=== PATIENT | male | born 1965 | race Caucasian/White ===

== ENCOUNTER → 2020-08-02 09:39 | Outpatient (CLI) | payer OTHER, SELFPAY ==
[2020-08-02 11:04] LABS: Coronavirus 19 IgG Antibody Negative (Negative); Coronavirus 19 IgM Antibody Negative (Negative)
== END ==
PROVIDERS: Visit Provider Internal Medicine Gastroenterology
DX: Z01.812 Encounter for preprocedural laboratory examination (principal); Z20.822 Contact with and (suspected) exposure to COVID-19; Z12.11 Encounter for screening for malignant neoplasm of colon
CPT/HCPCS: 36415; 86328

== ENCOUNTER 2020-08-04 09:32 | Day surgery (SDC) | payer OTHER, SELFPAY ==
[2020-08-04 10:00] VITALS: BP 133/86; PULSE 86; RESP 18; TEMP 36.4; O2SAT 99
[2020-08-04 10:09] VITALS: BMI 26.4
[2020-08-04 10:19] LABS: POC Glucose,Bedside 148 (70-110)
[2020-08-04 11:47] VITALS: O2SAT 98
--- NOTE | 2020-08-04 11:50 | P.PN_ITS ---
[facility] Anesthesia Checklist - Patient Identification Patient Identification: Arm Band - Structural Data Admitted From: Home Planned Operative Procedure/s: colon Consent for Planned Operative Procedure(s) Verified: Yes Verified Documents: Surgical Consent - Anesthesia Plan Anesthesia Risk discussed: Yes Anesthesia Plan: Verified ASA Class: III Anesthesia Type: General [facility] History Medical History: Denies:: Cancer, Diabetes Mellitus Type 1, Diabetes Mellitus Type 2, Internal Pacemaker, MRSA, Seizures *Have you ever received a pneumonia vaccine?: No *Have you received a flu vaccine this season?: Yes Comment:: none Anesthesia experience/problems:: none Other Surgeries: No: Pacemaker Amputation: No Fractures: No - *Social History Last grade of school completed: GED Smoking Status: Former smoker # Packs/Day (cigarettes): 1 #Yrs smoked (if former smoker): 28 Alcohol Intake: current Alcohol Intake Frequency:: holidays/special occasions only Substance Use Type: marijuana Last Used Substance: unknown *Occupational Status:: employed Housing: house Household Members: spouse *Travel in the last 8 weeks: None Family Hx:: Cancer
--- NOTE | 2020-08-04 12:17 | HMH.PROC ---
[facility] Procedure Note Procedure Note:: Colonoscopy Procedure Report: Colonoscopy with cold snare polypectomy Endoscopist: Jhon Hawkins II, MD Referring physician: Franco Sanchez MD Date of Procedure: August 04, 2020 Equipment: Olympus 180 variable stiffness pediatric colonoscope Sedation: MAC sedation Indication: Mr. Hung is a 54-year-old gentleman who is here for initial screening colonoscopy. The patient does have some mild chronic constipation. He reports no rectal bleeding, abdominal pain, change in bowel habits or family history of colon cancer. He has lost approximately 80 pounds over the last 4 years (unintentionally). Procedure: Prior to the procedure, a history and physical exam was performed, and patient's medications and allergies were reviewed. The risks, benefits and alternatives of the sedation and procedure were discussed with the patient. All questions were answered and informed consent was obtained. The patient was brought to the procedure room. Patient identification and proposed procedure were verified by the physician and the nurse. The patient was placed in a left lateral decubitus position and the scope was passed under direct vision. Throughout the procedure, the patient's blood pressure, pulse, and oxygen saturations were monitored continuously. The colonoscopy was accomplished without difficulty. The patient tolerated the procedure well. Findings: On digital rectal examination there was normal rectal tone. There were no external hemorrhoids. The prostate was mildly firm, 2+, symmetric without nodules. The colonoscope was introduced through the anal canal to the rectum and advanced to the cecum. The ileocecal valve and appendiceal orifice were identified. The scope was advanced a short distance into the ileum which appeared grossly normal. The scope was then withdrawn into the colon. The cecum, ascending and transverse colon and mucosa were grossly normal. There were 2 diminutive polyps (descending x1 (4 mm) and sigmoid x1 (4 mm)) which were both removed via cold snare polypectomy. There were scattered diverticuli throughout the descending and sigmoid colon (LEFT colon). The rectum itself was normal. Upon retroflexion within the rectum there were grade 2 internal hemorrhoids. The preparation was good throughout with [place] Preparation Score of 8 out of 9. The cecal time was 12. Impression: 1. Diminutive colonic polyps x2 2. Left-sided diverticulosis 3. Grade 2 internal hemorrhoids Plan: I will follow up the polyp pathology and recommend repeat colonoscopy again in 7-10 years based upon the polyp histology. I would encourage a fiber bowel regimen on a long-term daily maintenance basis.
[2020-08-04 12:20] VITALS: BP 95/66; PULSE 83; RESP 12; TEMP 36.2; O2SAT 95
[2020-08-04 12:30] VITALS: BP 103/74; PULSE 90; RESP 16; O2SAT 96
[2020-08-04 12:40] VITALS: BP 106/72; PULSE 94; RESP 16; O2SAT 97
[2020-08-04 12:50] VITALS: BP 138/79; PULSE 81; RESP 16; TEMP 36.2; O2SAT 98
== END 2020-08-04 12:52 | disposition home or self-care (01) ==
LOC: OUTP 09:36
PROVIDERS: PCP Family Medicine; Visit Provider Internal Medicine Gastroenterology
PROC: 0DJD8ZZ Inspection of Lower Intestinal Tract, Via Natural or Artificial Opening Endoscopic (ICD-10-PCS; CPT 45378; principal; 2020-08-04 11:00)
DX: Z12.11 Encounter for screening for malignant neoplasm of colon (principal); K63.5 Polyp of colon; K57.30 Diverticulosis of large intestine without perforation or abscess without bleeding; K64.1 Second degree hemorrhoids; R63.4 Abnormal weight loss; Z68.26 Body mass index [BMI] 26.0-26.9, adult; E78.5 Hyperlipidemia, unspecified; I10 Essential (primary) hypertension; E11.9 Type 2 diabetes mellitus without complications; F12.90 Cannabis use, unspecified, uncomplicated; Z87.891 Personal history of nicotine dependence; Z79.82 Long term (current) use of aspirin
CPT/HCPCS: 45385; 82962

== ENCOUNTER 2023-09-14 05:34 | Inpatient (IN) | payer MEDICARE, SELFPAY ==
[2023-09-14] VITALS (28 sets, daily range): BP systolic 101–145; BP diastolic 62–94; PULSE 58–150; RESP 10–20; TEMP 36.6–37; O2SAT 97–100; BMI 23.7; BMI 23.8
--- NOTE | 2023-09-14 | CA_ITS ---
APPROVED REPORT EXAM: Comprehensive 2D, Doppler, and color-flow Echocardiogram Marker Machine: Britany Sampson CRT Ht: 6 ft 1 in Wt: 180lbs BSA: 2.06 BP: 101/70 mmHg Indications: Shortness of Breath, Atrial Fibrillation (new onset), Fatigue 2D Dimensions IVSd 0.73 cm LVEF (Visual) 65.80 % PWd 0.90 cm LA Volume 26.20 mL LVDd 4.34 cm LA Volume Index 12.40 mL/m2 (M/F) 16-34 LVDs 2.78 cm Left Atrium 2.87 cm M-Mode Dimensions RVDd 2.64 cm (0.9-2.6) LA Diam 3.96 cm (1.9-4.0) LVDd 4.05 cm (3.5-5.7) LVDs 2.30 cm (3.5-5.7) IVSd 1.11 cm (0.6-1.1) PWd 1.32 cm (0.6-1.1) EF (Teich) 74.90% EPSs 0.51 cm FS 43.20% EDV (Teich) 72.10 mL TAPSE 1.49 (<1.7) ESV (Teich) 18.10 mL LV Diastology E Decel Time 212 (160-240 msec) E/A Ratio 1.97 MED A' 7.70 cm/s Aortic Valve HEIDI Index 0.91 cm2/m2 AoV Peak Frank. 130.0 (50-130 cm/s) AO Peak GR. 6.80 mmHg AO Mean GR. 3.40 (<5 mmHg) AO VTI 21.5 (18-25 cm) HEIDI (VTI) 1.91 (2.5-4.5 cm2) Mitral Valve MV A Velocity 31.0 (40-130 cm/s) E/A Ratio 1.97 Left Ventricle The left ventricle is normal size. The left ventricular systolic function is normal. The left ventricular ejection fraction is within the normal range. There is increased LV wall thickness. There is normal LV segmental wall motion. The left ventricular diastolic function is normal. LVEF is 55%. Right Ventricle The right ventricle is normal size. The right ventricular systolic function is normal. Atria The left atrium size is normal. The right atrium size is normal. There is no Doppler evidence of interatrial shunt. Aortic Valve The aortic valve is mildly thickened. There is no aortic valvular stenosis. No aortic regurgitation is present. Mitral Valve The mitral valve is normal in structure. No evidence of mitral valve stenosis. There is no mitral valve regurgitation noted. Tricuspid Valve The tricuspid valve leaflets are thin and pliable. Trace tricuspid regurgitation. There is insufficient TR jet to estimate RVSP. Pulmonic Valve The pulmonic valve is not well visualized. Great Vessels The aortic root is normal in size. IVC is normal in size and collapses >50% with inspiration. Pericardium There is no pericardial effusion. Other Information Study Quality: Technically Difficult Conclusion Technically difficult study due to poor accoustic windows. Normal biventricular systolic function. No significant valvular stenosis or regurgitation in the visualized valves. Electronically signed by : Jelena Loomis MD 09/16/2023 17:20:21
--- NOTE | 2023-09-14 05:46 | ECG_ITS ---
APPROVED REPORT Exam: Resting ECG HR:160 bpm ECG Measurements Heart Rate 160 AXES QRSd 89 QRS 70 QT 273 T 66 QTc 362 Conclusion A-fib with RVR. Mild ST depression in anterolateral leads, likely rate related. No reciprocal change Electronically signed by : IRIS BARNEY, 09/14/2023 11:24:53
--- NOTE | 2023-09-14 05:51 | XR_ITS ---
PROCEDURE INFORMATION: Exam: XR Chest Exam date and time: 09/14/2023 5:59 AM Age: 58 years old Clinical indication: Shortness of breath; Additional info: Palpitations, SOA TECHNIQUE: Imaging protocol: Radiologic exam of the chest. Views: 1 view. COMPARISON: No relevant prior studies available. FINDINGS: Lungs: Unremarkable. No consolidation. Pleural spaces: Unremarkable. No pleural effusion. No pneumothorax. Heart/Mediastinum: Unremarkable. No cardiomegaly. Bones/joints: Unremarkable. IMPRESSION: No acute findings.
--- NOTE | 2023-09-14 05:52 | ECG_ITS ---
APPROVED REPORT Exam: Resting ECG HR:150 bpm ECG Measurements Heart Rate 150 AXES QRSd 88 QRS 69 QT 278 T 65 QTc 363 Conclusion ATRIAL FIBRILLATION WITH RAPID VENTRICULAR RESPONSE Nonspecific ST/T wave changes Electronically signed by : CHARLIE RAMOS, 09/15/2023 05:42:27
[2023-09-14] MEDS: ASPIRIN 81MG CHEWABLE TABLET 324 MG PO (05:56)
--- NOTE | 2023-09-14 05:56 | PC.NURSE ---
contacted [facility] pharmacy for heparin bolus. spoke with carmina.
[2023-09-14] MEDS: HEPARIN DRIP CONSULT 1 EACH NOTAPPLIC (05:57)
[2023-09-14 05:59] LABS: Basophils # 0.2 K/mm3 (0-0.2); Basophils % 1.7 % (0.1-2.0); Eosinophils # 0.1 K/mm3 (0.0-0.4); Eosinophils % 1.3 % (0.1-12.0); Lymphocytes # 1.6 K/mm3 (0.7-4.5); Lymphocytes % 18.8 % (10-50); Mean Corpuscular HGB Conc 33.4 g/dL (31.8-35.4); Mean Corpuscular Hemoglobin 32.7 pg (27.0-31.2); Mean Corpuscular Volume 98.1 fl (80-94); Mean Platelet Volume 10.3 fl (7.4-10.4); Monocytes # 0.5 K/mm3 (0.1-1.0); Monocytes % 6.2 % (1.7-9.3); Neutrophils # 6.2 K/mm3 (1.8-7.8); Platelet Count 190 K/mm3 (142-424); Red Blood Count 6.13 M/mm3 (4.60-6.20); Red Cell Distribution Width 13.8 % (11.5-17.5); White Blood Count 8.6 K/mm3 (4.8-10.8)
--- NOTE | 2023-09-14 06:04 | ED_ITS ---
Discharge Plan Disposition Patient Disposition: Admitted Condition: Good Chief Complaint: Arrhythmia/Palpitations Prescriptions Prescriptions: No Action No Known Home Medications Referrals Follow up/Referrals: Carter Mcfarland MD [Primary Care Provider] - See instructions Clinical Impressions Clinical Impression: Atrial fibrillation with RVR, Polycythemia, Unintentional weight loss Discharge ED Provider: Marisel Luna General Adult HPI General Chief complaint: Arrhythmia/Palpitations Stated complaint: fatigue,vomiting,abd pain,high hr,laobred breathi Time Seen by Provider: 09/14/23 05:38 Mode of Arrival: Ambulatory Source of Information: Patient Limitations: No Limitations Description of Symptoms (Recalled from ER Triage Doc. by RN): Pt presents with SOA x several weeks that has worsened with heart palpitations. Denies chest pain, just pressure from heart racing. States he had an episode of vomiting earlier this morning which was clear. Describes a knot like feeling in abdomen after eating. History of Present Illness HPI narrative: This patient is a 58-year-old male with a history of diabetes for which he is supposed to take metformin but does not, a history of hyperlipidemia for which she does not take medication, prior history of smoking, and history of chronic digestion issues with unintentional weight loss presenting with concern for palpitations, shortness of air, nausea, and an episode of emesis that happened this morning. Patient states that for several weeks now, he feels like he cannot get a good breath in. He states that he feels like his heart is racing. He notes that it is intermittent and he can sometimes get it calms down if he lies down. He states that this morning, he had an episode of emesis with clear vomit and ice when he started feeling much worse. He states that he was afraid he was going to without IV felt. He also notes that at night if he eats, he gets a knot-like feeling in his abdomen and experiences nausea. He notes that he has not had much of an appetite and has not been able to eat or drink much since having COVID last February. Of note, patient is not on any anticoagulation or aspirin. He denies taking any medications at home regularly, as he states that his stomach cannot tolerate medications. He notes that he controls his blood sugar with diet. He notes he has very thick blood and has never been able to donate plasma because he always clots off of machines, so he is concerned about potential blood clot. Related Data Home Medications Medication Instructions Recorded Confirmed No Known Home Medications 09/14/23 09/14/23 Allergies Allergy/AdvReac Type Severity Reaction Status Date / Time codeine Allergy Vomiting Verified 08/04/20 09:58 [facility] Disclaimer: The information contained in this section may have been updated after the patient was seen, as this information can be updated by other users. Social History Smoking Status: Former smoker second hand exposure: No alcohol intake: current substance use type: marijuana current occupational status: employed Travel in the last 8 weeks: None household members: spouse housing: house current occupation: security current occupational exposures/hazards: No caffeine: Yes ROS Obtained: Yes All systems reviewed & no additional complaints except as documented Physical Exam General General appearance: alert and anxious Comment: Anxious and uncomfortable appearing Head Head exam: atraumatic and normocephalic Eye Eye exam: Present normal appearance, PERRL and EOMI ENT ENT exam: Present normal exam, normal oropharynx, mucous membranes moist and normal external ear exam Neck Neck exam: Present normal inspection, full ROM and trachea midline; Absent tenderness Chest Chest inspection: Present normal inspection and symmetric chest wall rise; Absent tenderness Respiratory Respiratory exam: Present normal lung sounds bilaterally; Absent respiratory distress, wheezes, stridor or accessory muscle use Cardiovascular Cardiovascular exam: Present tachycardia, irregular rhythm and normal heart sounds Abdominal Exam Abdominal exam: Present soft; Absent distention, tenderness, guarding, rebound or rigidity Extremities Exam Extremities exam: Present normal inspection, full ROM and normal capillary refill; Absent tenderness or edema Back Exam Back exam: Present normal inspection and full ROM; Absent tenderness Neurological Exam Neurological exam: Present alert, oriented X3, CN II-XII intact and normal gait; Absent motor sensory deficit Psychiatric Psychiatric exam: Present anxious Skin Skin exam: Present warm and dry Medical Decision Making Medical Records Medical records reviewed: Yes I reviewed the patient's medical records. Juan Inquiry Pt receiving controlled substance: No Vital Signs: 09/14/23 05:40 Temperature 98.1 F Temperature Source Oral Pulse Rate [Left] 144 H Respiratory Rate 18 Blood Pressure [Right Arm] 101/70 L Blood Pressure Mean [Right Arm] 80 Blood Pressure Source [Right Arm] Automatic Cuff Blood Pressure Position [Right Arm] Sitting 02 Sat by Pulse Oximetry 100 Oxygen Delivery Method Room Air Lab Data Lab results reviewed: Yes I reviewed the patient's lab results. Lab Results 09/14/23 05:45: WBC 8.6, RBC 6.13, Hgb 20.1 H, Hct 60.2 H*, MCV 98.1 H, MCH 32.7 H, MCHC 33.4, RDW 13.8, Plt Count 190, MPV 10.3, Neut % (Auto) 72.0, Lymph % (Auto) 18.8, Reynolds % (Auto) 6.2, Eos % (Auto) 1.3, Baso % (Auto) 1.7, Neut # (Auto) 6.2, Lymph # (Auto) 1.6, Reynolds # (Auto) 0.5, Eos # (Auto) 0.1, Baso # (Auto) 0.2, PT 11.4, INR 1.06, APTT 25.7 09/14/23 05:45: APTT 25.7, D-Dimer 0.35, Sodium 138, Potassium 4.6, Chloride 103, Carbon Dioxide 26, Anion Gap 13.6, BUN 17, Creatinine 1.10, Estimated Creat Clear 84, Estimated GFR 69, Est GFR ( Amer) 83, Glucose 142 H, Calcium 10.1, Phosphorus 3.6, Magnesium 2.1, Total Bilirubin 2.0 H, AST 37, ALT 24, Alkaline Phosphatase 83, Total Protein 8.4 H, Albumin 5.2 H, Globulin 3.2, Albumin/Globulin Ratio 1.6 09/14/23 05:45 09/14/23 05:45 Orders (Tests/Meds): ED MEDICATIONS Generic Name Dose Route Start Last Admin Trade Name Freq PRN Reason Stop Dose Admin Heparin Sodium/Dextrose 500 mls @ 20 mls/hr 09/14/23 06:15 09/14/23 06:09 Heparin 25,000 Units In D5w 500ml Premix IV 10/14/23 06:14 20 mls/hr .Q25H VALENTIN Administration 1,000 UNITS/HR Lactated Ringer's 1,000 mls @ 999 mls/hr 09/14/23 06:07 09/14/23 06:14 Lactated Ringer's 1000 Ml Bag IV 09/14/23 07:07 999 mls/hr .Q1H1M ONE Administration Diltiazem HCl 100 mg/ Sodium 100 mls @ 15 mls/hr 09/14/23 06:51 Chloride IV 10/14/23 06:50 .Q6H40M [facility] Protocol 15 MG/HR Miscellaneous 1 each 09/14/23 06:00 09/14/23 05:57 Heparin Drip Consult NOTAPPLIC 10/14/23 05:59 1 each CONSULT PHARMACY [facility] Administration Discontinued Medications Generic Name Dose Route Start Last Admin Trade Name Trevor PRN Reason Stop Dose Admin Aspirin 324 mg 09/14/23 05:55 09/14/23 05:56 Aspirin 81mg Chewable Tablet PO 09/14/23 05:56 324 mg ONCE ONE Administration Diltiazem HCl 10 mg 09/14/23 06:33 09/14/23 06:37 Diltiazem 25mg/5ml Vial IV 09/14/23 06:34 Not Given ONCE ONE Diltiazem HCl 15 mg 09/14/23 06:36 09/14/23 06:40 Diltiazem 25mg/5ml Vial IV 09/14/23 06:37 15 mg ONCE ONE Administration Heparin Sodium (Porcine) 4,000 unit 09/14/23 06:15 09/14/23 06:07 Heparin Sodium 5,000 Unit/Ml Vial IV 09/14/23 06:16 4,000 unit ONCE ONE Administration ORDERS Category Date Time Status Consult to Cardiology [CONS] Routine Cons 09/14/23 06:43 Active POCUS Point of Care (ER Only) Stat Exams 09/14/23 05:51 Taken XR chest portable Stat Exams 09/14/23 05:51 Taken Activated Partial Thrombo Time Stat Lab 09/14/23 05:45 Completed Brain Natriuretic Peptide Stat Lab 09/14/23 05:45 Results Complete Blood Count Auto Diff Stat Lab 09/14/23 05:45 Completed Comprehensive Metabolic Panel Stat Lab 09/14/23 05:45 Results D-Dimer Stat Lab 09/14/23 05:45 Completed Heparin drip PTT [PTT Heparin (inpatient only)] Stat Lab 09/14/23 12:30 Ordered Magnesium Stat Lab 09/14/23 05:45 Results PTT Heparin (inpatient only) Stat Lab 09/14/23 05:45 Completed Phosphorous Stat Lab 09/14/23 05:45 Results Prothrombin Time INR Stat Lab 09/14/23 05:45 Completed T4 (Thyroxine) Stat Lab 09/14/23 05:45 Results Thyroid Stimulating Hormone Stat Lab 09/14/23 05:45 Results Troponin I Q3H Lab 09/14/23 09:00 Ordered Troponin I Q3H Lab 09/14/23 12:00 Ordered Troponin I Stat Lab 09/14/23 05:45 Results VBG [Venous Blood Gas] Stat RT 09/14/23 06:06 Ordered CA echo doppler complete Stat Y 09/14/23 06:35 Ordered ECG Data Tracing #1: I reviewed this ECG and interpreted as documented below: Atrial fibrillation with rapid ventricular response with a ventricular rate of 160 bpm. No obvious notable ST elevations or depressions concerning for STEMI. ECG initial impression date: 09/14/23 ECG initial impression time: 05:47 Tracing #2: I reviewed this ECG and interpreted as documented below: Atrial fibrillation with rapid ventricular response with a ventricular rate of [address]/T wave changes without acute STEMI. ECG initial impression date: 09/14/23 ECG initial impression time: 05:54 Medical Decision Narrative: In summary, this patient is a 58-year-old male presenting to the Emergency Department for evaluation of weeks of intermittent palpitations and shortness of breath. Differential diagnoses considered include but are not limited to atrial fibrillation, dysrhythmia, electrolyte arrangement, hyperthyroidism, ACS, CHF, PE, atrial thrombus. Ruling out the most morbid conditions drove assessment. It should be noted the patient has a history of hyperlipidemia and diabetes, which are not at goal therapy as the patient does not take his home medications. This complicates all aspects of care as it increases risk for morbidity. Patient is also had significant history over the last year with unintentional weight loss. Upon initial evaluation, patient is in atrial fibrillation with rapid ventricular response with heart rate ranging in the 130s to 170s. He is hemodynamically stable with blood pressures in the 120s over 80s. Oxygen saturation is 100% on room air. At this time, concerned that he has potentially been in and out of atrial fibrillation or persistently in it for weeks. His symptoms have been going on for quite some time. Given this, patient is high risk for atrial thrombus and I feel immediate cardioversion could be potentially detrimental to him. Since he is hemodynamically stable, I feel that waiting for anticoagulation with heparin is most appropriate. I explained this to the patient, who expressed understanding and agreement and is happy to proceed with that. Workup included CBC, CMP, troponin, TSH, T4, magnesium, phosphorus, VBG, BNP, D-dimer, PT, PTT chest x-ray, EKG. Attempted bedside cardiac ultrasound, however equipment not functioning properly at this time in the emergency department. Formal echocardiogram was ordered for when ultrasound arrives for the morning and is able to perform it. I independently interpreted chest x-ray prior to the radiologist read and noted no large pneumothorax and no acute focal consolidation. Please see their read for final interpretation. Labs were obtained that demonstrated elevated hemoglobin at 20 with a hematocrit of 60.2%. I assume this is what the patient was referring to when he noted that his blood is thick. Patient does not have any clinically significant electrolyte derangements on lab evaluation. His bilirubin is mildly elevated, but liver enzymes are otherwise within normal limits. Glucose is 142. After initiation of the heparin drip to be on the safe side given that I cannot definitively exclude atrial thrombus at this time, patient was given a 15 mg bolus of IV diltiazem. He tolerated this well with improvement in his heart rate to the 90s. He intermittently is now in normal sinus rhythm. He is going in and out of atrial fibrillation. I had an indirect discussion with Dr. Manuel with cardiology who advised starting him on a diltiazem drip at 15 mg/h. This was initiated. At this time, feel patient would benefit from admission for continued monitoring and formal echocardiogram. I called and had an interactive discussion with the hospitalist to admit the patient for further evaluation and management. Critical Care Critical Care Time Critical Care Time: Yes Attestation: On 09/14/23, the high probability of a clinically significant, sudden or life threatening deterioration of the following system(s) required my full and direct attention, intervention and personal management. The time I documented below is in addition to time spent performing reported procedures but includes the following listed in this critical care notation. Total Time Total Critical Care Time: 45
[2023-09-14 06:05] LABS: Alanine Aminotransferase 24 U/L (12-78); Albumin Level 5.2 g/dl (3.5-5.0); Albumin/Globulin Ratio 1.6 (1.1-1.8); Alkaline Phosphatase 83 U/L (38-126); Anion Gap 13.6 mEq/L (5-15); Aspartate Amino Transferase 37 U/L (17-59); Blood Urea Nitrogen 17 mg/dl (9-20); Calcium 10.1 mg/dl (8.4-10.2); Carbon Dioxide 26 mmol/L (22.0-30.0); Chloride 103 mmol/L (98-107); Creatinine Clearance Estimated 84 mL/min (50-200); Estimated Glomerular Filt Rate 69 ml/min (>60); GFR (African American) 83 ML/MIN (>60); Globulin 3.2 g/dL (1.3-3.2); Glucose 142 mg/dl (74-100); Magnesium 2.1 mg/dl (1.6-2.3); Phosphorous 3.6 mg/dl (2.5-4.5); Potassium 4.6 mmoL/L (3.5-5.1); Sodium 138 mmol/L (136-145); Total Protein,Serum 8.4 g/dl (6.3-8.2)
[2023-09-14 06:07] LABS: Hematocrit 60.2 % (42.0-52.0); Hemoglobin 20.1 g/dL (14.1-18.0)
[2023-09-14] MEDS: HEPARIN SODIUM 5,000 UNIT/ML VIAL 4000 UNIT IV ×2 (06:07→13:10)
[2023-09-14 06:08] LABS: Activated Partial Thrombo Time 25.7 seconds (22.8-30.6); INR 1.06 (0.9-1.1); Prothrombin Time 11.4 seconds (10.1-12.5)
[2023-09-14] MEDS: HEPARIN SODIUM,PORCINE/D5W 500 ML 20 UNIT IV (06:09)
[2023-09-14] MEDS: LACTATED RINGERS 1000ML 1,000 ML 999 ML IV (06:14)
[2023-09-14 06:15] LABS: D-Dimer 0.35 ug/mL (0.0-0.5); PTT Heparin (inpatient only) 25.7 Seconds (23.6-34.0)
[2023-09-14 06:18] LABS: NT Pro Brain Natriuretic Pep. 69.6 pg/mL (0-125)
--- NOTE | 2023-09-14 06:18 | PC.NURSE ---
call out to dr galindo after verifying on-call status.
[2023-09-14 06:22] LABS: T4 (Thyroxine) 17.5 ug/dl (5.53-11.0)
--- NOTE | 2023-09-14 06:22 | PC.NURSE ---
attempted to call dr galindo without success per md-md phone call.
--- NOTE | 2023-09-14 06:24 | PC.NURSE ---
call to brendan vuong's cellphone in attempts to reach dr galindo. left voicemail.
[2023-09-14 06:36] LABS: Thyroid Stimulating Hormone 2.25 uIU/mL (0.465-4.68)
--- NOTE | 2023-09-14 06:37 | PC.NURSE ---
called registration for dr galindo.
[2023-09-14] MEDS: dilTIAZem 25MG/5ML VIAL 15 MG IV (06:40)
--- NOTE | 2023-09-14 06:48 | PC.NURSE ---
dr galindo returned call.
[2023-09-14] MEDS: dilTIAZem HCL 100 MG in 0.9 % SODIUM CHLORIDE 100 ML 15 MG IV ×2 (06:58→13:10)
--- NOTE | 2023-09-14 07:00 | PC.NURSE ---
Spoke with Teresita from the ECHO lab and informed her of patient's current 140 heart rate. She states that she can not perform the ECHO until the patient is consistently below 120. Currently starting diltiazem drip and will notify oncoming RN to contact ECHO lab at extension [phone] when heart rate consistently below 120.
--- NOTE | 2023-09-14 07:07 | PC.NURSE ---
dr holcomb states new plan is to medicate with dilt, obtain the echo and admit
[2023-09-14 07:25] LABS: Lactate Venous 2.9 mmol/L (0.4-2.0); VBG Base Excess 0.1 mmol/L (-2.4-2.3); VBG HCO3 25.3 mmol/L (23-30); VBG Oxygen Saturation 56.1 % (50-70); VBG PH 7.38 mmol/L (7.31-7.41); VBG PO2 27.7 mmol/L (28-40); VBG Total CO2 26.6 mmol/L (23-27)
[2023-09-14 07:26] LABS: Troponin I < 0.01 ng/ml (0.00-0.034)
--- NOTE | 2023-09-14 07:45 | PC.NURSE ---
ECHO AT BEDSIDE
--- NOTE | 2023-09-14 07:50 | PC.NURSE ---
S/W Kennel Helper for admission, pt will be boarding in ER. CV lab at bedside for Echo.
[2023-09-14 10:14] LABS: Troponin I < 0.01 ng/ml (0.00-0.034)
--- NOTE | 2023-09-14 10:17 | PC.NURSE ---
SPOKE WITH SAMPLE TESTER GRINDER, ROOM FOR ADMISSION IS BEING CLEANED AT THIS TIME. PT AND FAMILY UPDATED
--- NOTE | 2023-09-14 11:01 | PC.NURSE ---
REPORT CALLED XAVIER SPRINGER
--- NOTE | 2023-09-14 11:08 | PC.NURSE ---
transferring pt to 2nd floor. H [facility] and Valerie Acosta SRNA with pt via wheelchair
[2023-09-14 11:25] LABS: Reflex Lactic Add Lactic Reflex
--- NOTE | 2023-09-14 11:55 | ECG_ITS ---
APPROVED REPORT Exam: Resting ECG HR:83 bpm ECG Measurements Heart Rate 83 AXES NJ 149 P 73 QRSd 90 QRS 75 QT 349 T 72 QTc 389 Conclusion SINUS RHYTHM NONSPECIFIC T-WAVE ABNORMALITY BORDERLINE ECG UNCONFIRMED REPORT Electronically signed by : Franco Reyes MD 09/14/2023 20:58:25
[2023-09-14 11:57] LABS: Lactic Acid Follow Up (RFLX 1) 1.2 mmol/L (0.7-2.1)
[2023-09-14 12:52] LABS: PTT Heparin (inpatient only) 36.2 Seconds (23.6-34.0)
--- NOTE | 2023-09-14 13:06 | P.CONPHA_ITS ---
[facility] [place] [facility] Heparin Dosing Demographic Data Admission date:: 09/14/23 Date: 09/14/23 Time: 13:06 Allergies Allergy/AdvReac Type Severity Reaction Status Date / Time codeine Allergy Vomiting Verified 08/04/20 09:58 Height: 1.85 m Weight: 82 kg Indication Medication therapy:: Heparin Current Indications:: [place] Current Active Problems (Updated 09/14/23 @ 11:59 by Mamie Collado RN) Unintentional weight loss (Acute) Polycythemia (Acute) Atrial fibrillation with RVR (Acute) CVA?: No Bleeding problem?: No Kidney disease?: No [place]?: Yes Desired PTT range:: 50-75 seconds Comments:: 50-75 Labs Anticoagulation Lab Results:: 09/14/23 05:45 Hgb 20.1 H Hct 60.2 H* Plt Count 190 Monitoring Dose Monitor 1: Date: 09/14/23 Time: 06:15 PTT Result:: 25.7 Comment:: INITIATE DRIP AT 1000 UNITS/HR (20ML/HR) AND GIVE 4000 UNIT BOLUS, RECHECK PTT AT 1230 Dose Monitor 2: Date: 09/14/23 Time: 13:00 PTT Result:: 36.2 Comment:: GIVE ANOTHER 4000 UNIT BOLUS, INCREASE DRIP BY 4 UNITS/KG/HR (300 UNITS/HR) TO GOAL RATE OF 1300 UNITS/HR. RECHECK PTT AT 1800 Core Measures Is INR > or = 2 at discharge?: No Most Recent Labs:: Laboratory Results - last 24 hr 09/14/23 05:45: WBC 8.6, RBC 6.13, Hgb 20.1 H, Hct 60.2 H*, MCV 98.1 H, MCH 32.7 H, MCHC 33.4, RDW 13.8, Plt Count 190, MPV 10.3, Neut % (Auto) 72.0, Lymph % (Auto) 18.8, [place] % (Auto) 6.2, Eos % (Auto) 1.3, Baso % (Auto) 1.7, Neut # (Auto) 6.2, Lymph # (Auto) 1.6, [place] # (Auto) 0.5, Eos # (Auto) 0.1, Baso # (Auto) 0.2, PT 11.4, INR 1.06, APTT 25.7 09/14/23 05:45: APTT 25.7, D-Dimer 0.35, Sodium 138, Potassium 4.6, Chloride 103, Carbon Dioxide 26, Anion Gap 13.6, BUN 17, Creatinine 1.10, Estimated Creat Clear 84, Estimated GFR 69, Est GFR ( Amer) 83, Glucose 142 H, Calcium 10.1, Phosphorus 3.6, Magnesium 2.1, Total Bilirubin 2.0 H, AST 37, ALT 24, Alkaline Phosphatase 83, Troponin I < 0.01, NT-Pro-B Natriuret Pep 69.6, Total Protein 8.4 H, Albumin 5.2 H, Globulin 3.2, Albumin/Globulin Ratio 1.6, TSH 2.25, Thyroxine (T4) 17.5 H 09/14/23 06:06: VBG pH 7.38, VBG pCO2 44.0, VBG pO2 27.7 L, VBG HCO3 25.3, VBG Total CO2 26.6, VBG O2 Saturation 56.1, VBG Base Excess 0.1, VBG Lactic Acid 2.9 H 09/14/23 09:24: Troponin I < 0.01 09/14/23 11:35: Lactate 1.2 09/14/23 12:27: APTT 36.2 H Were Heparin and Warfarin started on the same day?: No
[2023-09-14 13:07] LABS: Lactate Venous 1.6 mmol/L (0.4-2.0)
[2023-09-14 13:11] LABS: Troponin I 0.01 ng/ml (0.00-0.034)
[2023-09-14] MEDS: HEPARIN SODIUM,PORCINE/D5W 500 ML 26 UNIT IV (13:11)
--- NOTE | 2023-09-14 13:47 | HMH.ITSTN ---
PT ON CARDIEDWARD DRIP, NURSE HAS TO COME WITH PATIENT FOR CT. WILL CALL WHEN THEY ARE READY.
--- NOTE | 2023-09-14 13:53 | EXP.CARD.CON ---
History of Present Illness History of Present Illness Consult date: 09/21/23 Requesting physician: Michael Patterson Consult reason: atrial fibrillation and shortness of breath Chief complaint: soa and palpitations History of present illness: 58-year-old white male with past medical history of hypertension, diabetes mellitus and polycythemia presented to emergency department with complaints of palpitations and shortness of breath intermittently x 2 weeks, worse yesterday. Upon arrival to emergency department patient was found to be in A-fib RVR at a rate of 160. Labs as follow: WBC 8.6, hemoglobin 20.1, hematocrit 60.2, D-dimer was negative, sodium 138, potassium 4.6, creatinine 1.1, serial troponins negative. Chest x-ray is negative for acute cardiopulmonary process. Patient was started on diltiazem drip and heparin drip and admitted for further evaluation for A-fib RVR. Upon assessment of patient on the floor he is converted to normal sinus rhythm and reports is feeling better. Denies chest pain. [facility] Disclaimer: The information contained in this section may have been updated after the patient was seen, as this information can be updated by other users. Medical History (Updated 09/14/23 @ 11:59 by Mamie Collado RN) Diabetes Depression Anxiety Social History (Updated 09/14/23 @ 11:59 by Mamie Collado RN) Smoking Status: Former smoker second hand exposure: No alcohol intake: current substance use type: marijuana current occupational status: employed and unemployed Travel in the last 8 weeks: None household members: spouse housing: house current occupation: security current occupational exposures/hazards: No caffeine: Yes Review of Systems Review of Systems Review of systems:: pertinent systems reviewed and negative unless documented below *Cardiovascular Cardiovascular: Denies chest pain and Reports dyspnea on exertion Comments: Palpitations *Respiratory Respiratory: Reports dyspnea on exertion Exam Data for Last 24 hours Vital signs and Labs for Last 24 Hours: Temp Pulse Resp BP Pulse Ox O2 Del Method 98.6 F 89 16 107/81 L 98 Room Air 09/14/23 11:31 09/14/23 12:30 09/14/23 12:30 09/14/23 12:30 09/14/23 12:30 09/14/23 13:00 Laboratory Results - last 24 hr 09/14/23 05:45: WBC 8.6, RBC 6.13, Hgb 20.1 H, Hct 60.2 H*, MCV 98.1 H, MCH 32.7 H, MCHC 33.4, RDW 13.8, Plt Count 190, MPV 10.3, Neut % (Auto) 72.0, Lymph % (Auto) 18.8, [place] % (Auto) 6.2, Eos % (Auto) 1.3, Baso % (Auto) 1.7, Neut # (Auto) 6.2, Lymph # (Auto) 1.6, [place] # (Auto) 0.5, Eos # (Auto) 0.1, Baso # (Auto) 0.2, PT 11.4, INR 1.06, APTT 25.7 09/14/23 05:45: APTT 25.7, D-Dimer 0.35, Sodium 138, Potassium 4.6, Chloride 103, Carbon Dioxide 26, Anion Gap 13.6, BUN 17, Creatinine 1.10, Estimated Creat Clear 84, Estimated GFR 69, Est GFR ( Amer) 83, Glucose 142 H, Calcium 10.1, Phosphorus 3.6, Magnesium 2.1, Total Bilirubin 2.0 H, AST 37, ALT 24, Alkaline Phosphatase 83, Troponin I < 0.01, NT-Pro-B Natriuret Pep 69.6, Total Protein 8.4 H, Albumin 5.2 H, Globulin 3.2, Albumin/Globulin Ratio 1.6, TSH 2.25, Thyroxine (T4) 17.5 H 09/14/23 06:06: VBG pH 7.38, VBG pCO2 44.0, VBG pO2 27.7 L, VBG HCO3 25.3, VBG Total CO2 26.6, VBG O2 Saturation 56.1, VBG Base Excess 0.1, VBG Lactic Acid 2.9 H 09/14/23 09:24: Troponin I < 0.01 09/14/23 11:30: VBG Lactic Acid 1.6 09/14/23 11:35: Lactate 1.2 09/14/23 12:27: APTT 36.2 H, Troponin I 0.01 I & O for Last 24 hours: Intake & Output 09/11/23 09/12/23 09/13/23 09/14/23 23:59 23:59 23:59 23:59 Intake Total 93 / 93 Output Total 0 / 0 Balance Weight 180 lb 12.465 oz Constitutional Constitutional: no acute distress *Routine Respiratory Exam Respiratory: Present CTA bilaterally and symmetric chest movement *Routine Cardiovascular Exam Cardiovascular: Present RRR, Normal S1 and Normal S2 *Routine Abdominal Exam Abdominal: Present soft and normoactive bowel sounds; Absent tenderness *Routine Extremities Exam Extremities: Present full ROM and normal capillary refill; Absent edema *Routine Skin Exam Skin: Present intact, dry and warm Detailed Neck Exam: Thyroids Thyroid: Absent bruit Meds Home Medications and Allergies Home Medications Medication Instructions Recorded Confirmed Type No Known Home Medications 09/14/23 09/14/23 History New Prescriptions to Start Prescriptions: Allergies Allergy/AdvReac Type Severity Reaction Status Date / Time codeine Allergy Vomiting Verified 08/04/20 09:58 Assessment and Plan *Assessment and plan (1) Polycythemia: Status: Acute Category: Medical Code(s): D75.1 - Secondary polycythemia (2) Atrial fibrillation with RVR: Status: Acute Category: Medical Code(s): I48.91 - Unspecified atrial fibrillation Plan New onset A-fib RVR Chadsvasc score 1 Hx of polycythemia -Converted to NSR with diltizem drip -start metoprolol succinate 25mg p.o. daily -patient has a chadsvasc score of one, however, given hx of polycythemia would recommend oac therapy -stop heparin drip and start xarelto 20mg daily -wean from dilt drip -Echo shows a normal EF -serial trops negative Hx of polycythemia -hct 60.2 -Hgb 20.1 -Will obtain ct of abdomen to r/o adrenal mass -will need outpatient eval per hematology CV summary 09/14/2023: Attempt to wean from Dilt drip. CT abdomen pelvis pending
[2023-09-14] MEDS: METOPROLOL SUCCINATE XL 25MG TABLET 25 MG PO (14:08)
[2023-09-14] MEDS: RIVAROXABAN 10MG TABLET 20 MG PO (15:17)
--- NOTE | 2023-09-14 16:03 | CT_ITS ---
PROCEDURE INFORMATION: Exam: CT Abdomen And Pelvis Without And With Contrast Exam date and time: 09/14/2023 4:19 PM Age: 58 years old Clinical indication: Other: Check for adrenal masses TECHNIQUE: Imaging protocol: Computed tomography of the abdomen and pelvis without and with contrast. Radiation optimization: All CT scans at this facility use at least one of these dose optimization techniques: automated exposure control; mA and/or kV adjustment per patient size (includes targeted exams where dose is matched to clinical indication); or iterative reconstruction. Contrast material: ISOVUE; Contrast volume: 75 ml; Contrast route: INTRAVENOUS (IV); COMPARISON: CR XR CHEST PORTABLE 09/14/2023 5:59 AM FINDINGS: Lungs: 3 mm noncalcified subpleural nodules in the left lower lobe. Coronary arteries: Severe coronary artery calcification. Liver: Multiple calcified granulomas throughout the liver. 1.2 cm cyst in the medial segment of the left lobe. Scattered subcentimeter low-density lesions are too small to characterize but are likely cysts. Gallbladder and bile ducts: Normal. No calcified stones. No ductal dilation. Pancreas: Normal. No ductal dilation. Spleen: Calcified granulomas in the spleen. No splenomegaly. Adrenal glands: Normal. No mass. Kidneys and ureters: Normal. No hydronephrosis. Stomach and bowel: Extensive distal colonic diverticulosis without diverticulitis. Moderate fecal material throughout the colon. No dilated or thickened bowel loops. Appendix: No evidence of appendicitis. Intraperitoneal space: Unremarkable. No free air. No significant fluid collection. Vasculature: Moderate/severe atherosclerotic disease without aneurysm. Lymph nodes: Calcified mediastinal and right hilar lymph nodes. No adenopathy. Urinary bladder: Unremarkable as visualized. Reproductive: Unremarkable as visualized. Bones/joints: Bilateral L5 pars defects with 1.0 cm of grade 1 anterolisthesis of L5 over S1. Soft tissues: Small fat containing indirect left inguinal hernia. Small fat containing umbilical hernia. IMPRESSION: 1. No adrenal nodules. 2. 3 mm noncalcified subpleural nodules in the left lower lobe. For patients at low risk (minimal or absent history of smoking and of other known risk factors), no routine follow-up is indicated. For patients at high risk (history of smoking or of other known risk factors), consider optional CT Chest at 12 months. (Reference: Madhav) 3. Prior granulomatous disease. 4. Extensive distal colonic diverticulosis. REFERENCES: Madhav Lerma et al. Guidelines for Management of Incidental Pulmonary Nodules Detected on CT Images: From the Fleischner Society 2017. Radiology. 2017;284(1):228-243.
[2023-09-14] MEDS: SODIUM CHLORIDE 0.9% 10ML SYR (RAD ONLY) 10 ML IV (17:07)
[2023-09-14] MEDS: IOPAMIDOL-370 (76%);100ML BOTTLE 75 ML IV (17:07)
--- NOTE | 2023-09-14 17:56 | P.HP_ITS ---
History of Present Illness *Admission Date: 09/14/23 *Reason for visit:: SOB *History of present illness: Patient is a 58-year-old female with past medical history of diabetes mellitus polycythemia hypertension who presents to the hospital due to shortness of breath for about 2 weeks. According to the patient he has not been feeling well for past 2 to 3 days. Patient otherwise denied chest pain nausea vomiting diarrhea constipation dysuria fevers and chills. Patient was noted to be in A- fib with RVR, patient was admitted for further evaluation. 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 Medical History (Updated 09/14/23 @ 11:59 by Mamie Collado RN) Diabetes Depression Anxiety Social History (Updated 09/14/23 @ 11:59 by Mamie Collado RN) Smoking Status: Former smoker second hand exposure: No alcohol intake: current substance use type: marijuana current occupational status: employed and unemployed Travel in the last 8 weeks: None household members: spouse housing: house current occupation: security current occupational exposures/hazards: No caffeine: Yes Review of Systems Review of Systems Review of systems (narrative): as per HPI Meds Home Medications and Allergies Home Medications Medication Instructions Recorded Confirmed Type No Known Home Medications 09/14/23 09/14/23 History New Prescriptions to Start Prescriptions: Allergies Allergy/AdvReac Type Severity Reaction Status Date / Time codeine Allergy Vomiting Verified 08/04/20 09:58 Exam Data for Last 24 hours Vital signs and Labs for Last 24 Hours: Temp Pulse Resp BP Pulse Ox O2 Del Method 98.4 F 68 15 143/84 H 98 Room Air 09/14/23 16:00 09/14/23 16:00 09/14/23 16:00 09/14/23 16:00 09/14/23 16:00 09/14/23 17:06 Laboratory Results - last 24 hr 09/14/23 05:45: WBC 8.6, RBC 6.13, Hgb 20.1 H, Hct 60.2 H*, MCV 98.1 H, MCH 32.7 H, MCHC 33.4, RDW 13.8, Plt Count 190, MPV 10.3, Neut % (Auto) 72.0, Lymph % (Auto) 18.8, [place] % (Auto) 6.2, Eos % (Auto) 1.3, Baso % (Auto) 1.7, Neut # (Auto) 6.2, Lymph # (Auto) 1.6, [place] # (Auto) 0.5, Eos # (Auto) 0.1, Baso # (Auto) 0.2, PT 11.4, INR 1.06, APTT 25.7 09/14/23 05:45: APTT 25.7, D-Dimer 0.35, Sodium 138, Potassium 4.6, Chloride 103, Carbon Dioxide 26, Anion Gap 13.6, BUN 17, Creatinine 1.10, Estimated Creat Clear 84, Estimated GFR 69, Est GFR ( Amer) 83, Glucose 142 H, Calcium 10.1, Phosphorus 3.6, Magnesium 2.1, Total Bilirubin 2.0 H, AST 37, ALT 24, Alkaline Phosphatase 83, Troponin I < 0.01, NT-Pro-B Natriuret Pep 69.6, Total Protein 8.4 H, Albumin 5.2 H, Globulin 3.2, Albumin/Globulin Ratio 1.6, TSH 2.25, Thyroxine (T4) 17.5 H 09/14/23 06:06: VBG pH 7.38, VBG pCO2 44.0, VBG pO2 27.7 L, VBG HCO3 25.3, VBG Total CO2 26.6, VBG O2 Saturation 56.1, VBG Base Excess 0.1, VBG Lactic Acid 2.9 H 09/14/23 09:24: Troponin I < 0.01 09/14/23 11:30: VBG Lactic Acid 1.6 09/14/23 11:35: Lactate 1.2 09/14/23 12:27: APTT 36.2 H, Troponin I 0.01 I & O for Last 24 hours: Intake & Output 09/11/23 09/12/23 09/13/23 09/14/23 23:59 23:59 23:59 23:59 Intake Total 560 / 560 Output Total 0 / 0 Balance 560 / 560 Weight 82 kg Constitutional Constitutional: no acute distress *Routine HEENT Exam Head: Present normocephalic Eye: Present EOMI and PERRL ENT: Present mucous membranes moist *Routine Neck Exam Neck: Present supple; Absent lymphadenopathy *Routine Respiratory Exam Respiratory: Present CTA bilaterally *Routine Cardiovascular Exam Cardiovascular: Present tachycardia and irregular rhythm *Routine Abdominal Exam Abdominal: Present soft and normoactive bowel sounds; Absent tenderness *Routine Rectal Exam Rectal:: deferred *Routine Genitalia Exam Genitalia:: deferred *Routine Extremities Exam Extremities: Absent cyanosis, clubbing or edema *Routine Skin Exam Skin: Present warm; Absent rash *Routine Neurological Exam Neurological: Present alert and oriented X3 Assessment and Plan *Assessment and plan (1) Unintentional weight loss: Status: Acute Category: Medical Code(s): R63.4 - Abnormal weight loss (2) Polycythemia: Status: Acute Category: Medical Code(s): D75.1 - Secondary polycythemia (3) Atrial fibrillation with RVR: Status: Acute Category: Medical Code(s): I48.91 - Unspecified atrial fibrillation Plan Patient is a 58-year-old female with past medical history of diabetes mellitus polycythemia hypertension who presents to the hospital due to shortness of breath for about 2 weeks. According to the patient he has not been feeling well for past 2 to 3 days. Patient otherwise denied chest pain nausea vomiting diarrhea constipation dysuria fevers and chills. Patient was noted to be in A- fib with RVR, patient was admitted for further evaluation. 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
[2023-09-14 19:29] LABS: PTT Heparin (inpatient only) 40.8 Seconds (23.6-34.0)
[2023-09-15] VITALS: BP 145/87; PULSE 56; RESP 18; TEMP 36.6; O2SAT 97
[2023-09-15 04:00] VITALS: BP 145/80; PULSE 72; RESP 18; TEMP 36.7; O2SAT 98; BMI 23.9
[2023-09-15 06:02] LABS: Basophils # 0.1 K/mm3 (0-0.2); Basophils % 1.1 % (0.1-2.0); Eosinophils # 0.2 K/mm3 (0.0-0.4); Eosinophils % 2.7 % (0.1-12.0); Hematocrit 49.9 % (42.0-52.0); Lymphocytes # 1.5 K/mm3 (0.7-4.5); Lymphocytes % 24.2 % (10-50); Mean Corpuscular HGB Conc 34.6 g/dL (31.8-35.4); Mean Corpuscular Hemoglobin 33.7 pg (27.0-31.2); Mean Corpuscular Volume 97.4 fl (80-94); Mean Platelet Volume 10.1 fl (7.4-10.4); Monocytes # 0.5 K/mm3 (0.1-1.0); Monocytes % 7.3 % (1.7-9.3); Neutrophils # 4.1 K/mm3 (1.8-7.8); Neutrophils % 64.8 % (37.0-80.0); Platelet Count 156 K/mm3 (142-424); Red Blood Count 5.13 M/mm3 (4.60-6.20); Red Cell Distribution Width 13.9 % (11.5-17.5); White Blood Count 6.4 K/mm3 (4.8-10.8)
[2023-09-15 06:07] LABS: Hemoglobin 17.3 g/dL (14.1-18.0)
[2023-09-15 06:15] LABS: Anion Gap 8.8 mEq/L (5-15); Blood Urea Nitrogen 18 mg/dl (9-20); Calcium 9.1 mg/dl (8.4-10.2); Carbon Dioxide 31 mmol/L (22.0-30.0); Chloride 104 mmol/L (98-107); Creatinine Clearance Estimated 84 mL/min (50-200); Estimated Glomerular Filt Rate 69 ml/min (>60); GFR (African American) 83 ML/MIN (>60); Glucose 108 mg/dl (74-100); Potassium 3.8 mmoL/L (3.5-5.1); Sodium 140 mmol/L (136-145)
--- NOTE | 2023-09-15 06:26 | PC.NURSE ---
Patient has slept well thus far in shift. Patient has voiced no c/o of pain/SOA. Patient can ambulate independently to bathroom. HR has remained 56-72. Patient remains NSR on quality assurance monitor final. Call light within reach.
[2023-09-15 08:00] VITALS: BP 140/70; PULSE 71; PULSE 81; RESP 17; TEMP 37; O2SAT 98
[2023-09-15] MEDS: METOPROLOL SUCCINATE XL 25MG TABLET 25 MG PO (08:34)
[2023-09-15 11:47] VITALS: BP 142/74; PULSE 70; RESP 16; TEMP 36.9; O2SAT 98
--- NOTE | 2023-09-15 11:47 | P.PN_ITS ---
Subjective Subjective Date: 09/15/23 Time: 08:00 Principal diagnosis: A-fib RVR Interval history: Patient doing well this morning. Patient remains in normal sinus rhythm off of all drips. Morning labs reviewed. Patient requesting to go home. Exam Data for Last 24 hours Vital signs and Labs for Last 24 Hours: Temp Pulse Resp BP Pulse Ox O2 Del Method 98.6 F 81 17 140/70 98 Room Air 09/15/23 08:00 09/15/23 08:00 09/15/23 08:00 09/15/23 08:00 09/15/23 08:00 09/15/23 10:37 Laboratory Results - last 24 hr 09/14/23 11:30: VBG Lactic Acid 1.6 09/14/23 11:35: Lactate 1.2 09/14/23 12:27: APTT 36.2 H, Troponin I 0.01 09/14/23 18:15: APTT 40.8 H 09/15/23 05:35: WBC 6.4 D, RBC 5.13, Hgb 17.3 D, Hct 49.9, MCV 97.4 H, MCH 33.7 H, MCHC 34.6, RDW 13.9, Plt Count 156, MPV 10.1, Neut % (Auto) 64.8, Lymph % (Auto) 24.2, [place] % (Auto) 7.3, Eos % (Auto) 2.7, Baso % (Auto) 1.1, Neut # (Auto) 4.1, Lymph # (Auto) 1.5, [place] # (Auto) 0.5, Eos # (Auto) 0.2, Baso # (Auto) 0.1, Sodium 140, Potassium 3.8, Chloride 104, Carbon Dioxide 31 H, Anion Gap 8.8, BUN 18, Creatinine 1.10, Estimated Creat Clear 84, Estimated GFR 69, Est GFR ( Amer) 83, Glucose 108 H D, Calcium 9.1 I & O for Last 24 hours: Intake & Output 09/12/23 09/13/23 09/14/23 09/15/23 23:59 23:59 23:59 23:59 Intake Total 830 / 830 360 / 360 Output Total 0 / 0 0 / 0 Balance 830 / 830 360 / 360 Weight 180 lb 12.465 oz 180 lb 12.465 oz Constitutional Constitutional: no acute distress *Routine Respiratory Exam Respiratory: Present CTA bilaterally and symmetric chest movement *Routine Cardiovascular Exam Cardiovascular: Present RRR, Normal S1 and Normal S2 *Routine Abdominal Exam Abdominal: Present soft and normoactive bowel sounds; Absent tenderness *Routine Extremities Exam Extremities: Present full ROM and normal capillary refill; Absent edema *Routine Skin Exam Skin: Present intact, dry and warm Detailed Neck Exam: Thyroids Thyroid: Absent bruit Progress Note: A&P Assessment and plan (1) Unintentional weight loss: Status: Acute (2) Polycythemia: Status: Acute (3) Atrial fibrillation with RVR: Status: Acute Assessment and Plan Assessment and Plan for All Diagnoses:: New onset A-fib RVR Chadsvasc score 1 Hx of polycythemia -Converted to NSR with diltizem drip -Continue metoprolol succinate 25mg p.o. daily -patient has a chadsvasc score of one, however, given hx of polycythemia would recommend oac therapy -Continue xarelto 20mg daily -Echo shows a normal EF -serial trops negative Hx of polycythemia -hct 60.2- -Hgb 20.1 -Will obtain ct of abdomen negative for adrenal mass. Diverticulosis and subpleural nodules in the left lower lobe present. Please refer to primary service and GI for follow-up. -will need outpatient eval per hematology for polycythemia CV summary 09/14/2023: Patient is CV stable for discharge home. Please discharge patient home and 2-week event monitor with referral to GI for diverticulosis and hematology for polycythemia. Patient can follow-up with primary service regarding the subpleural nodules noted on the CT. please continue below listed medications and have patient follow-up in cardiology clinic in 1 week for reevaluation. Metoprolol succinate 25 mg daily Xarelto 20 mg daily
--- NOTE | 2023-09-15 12:44 | P.DS_ITS ---
General Admission date:: 09/14/23 Discharge date: 09/15/23 HPI HPI HPI: Patient is a 58-year-old female with past medical history of diabetes mellitus polycythemia hypertension who presents to the hospital due to shortness of breath for about 2 weeks. According to the patient he has not been feeling well for past 2 to 3 days. Patient otherwise denied chest pain nausea vomiting diarrhea constipation dysuria fevers and chills. Patient was noted to be in A- fib with RVR, patient was admitted for further evaluation. Assessment and plan New onset atrial fibrillation with RVR [id number] score of 1 Patient is a started on Xarelto given increased risk of complications due to presence of polycythemia Patient is a started on Cardizem drip Echocardiogram Monitor on cardiac braid maker and replace electrolytes History of polycythemia Monitor CBC DVT prophylaxis-on Xarelto Hospital Course Hospital Course Hospital Course: Patient is a 58-year-old female with past medical history of diabetes mellitus polycythemia hypertension who presents to the hospital due to shortness of breath for about 2 weeks. According to the patient he has not been feeling well for past 2 to 3 days. Patient otherwise denied chest pain nausea vomiting diarrhea constipation dysuria fevers and chills. Patient was noted to be in A- fib with RVR, patient was admitted for further evaluation. Assessment and plan New onset atrial fibrillation with RVR - now rate conrtolled on metoprolol [id number] score of 1 Patient is a started on Xarelto given increased risk of complications due to presence of polycythemia follow up with PCP and cardiology as OP Exam Data for Last 24 hours Vital signs and Labs for Last 24 Hours: Temp Pulse Resp BP Pulse Ox O2 Del Method 98.5 F 70 16 142/74 H 98 Room Air 09/15/23 11:47 09/15/23 11:47 09/15/23 11:47 09/15/23 11:47 09/15/23 11:47 09/15/23 11:47 Laboratory Results - last 24 hr 09/14/23 11:30: VBG Lactic Acid 1.6 09/14/23 12:27: APTT 36.2 H, Troponin I 0.01 09/14/23 18:15: APTT 40.8 H 09/15/23 05:35: WBC 6.4 D, RBC 5.13, Hgb 17.3 D, Hct 49.9, MCV 97.4 H, MCH 33.7 H, MCHC 34.6, RDW 13.9, Plt Count 156, MPV 10.1, Neut % (Auto) 64.8, Lymph % (Auto) 24.2, Stanly % (Auto) 7.3, Eos % (Auto) 2.7, Baso % (Auto) 1.1, Neut # (Auto) 4.1, Lymph # (Auto) 1.5, Stanly # (Auto) 0.5, Eos # (Auto) 0.2, Baso # (Auto) 0.1, Sodium 140, Potassium 3.8, Chloride 104, Carbon Dioxide 31 H, Anion Gap 8.8, BUN 18, Creatinine 1.10, Estimated Creat Clear 84, Estimated GFR 69, Est GFR ( Amer) 83, Glucose 108 H D, Calcium 9.1 I & O for Last 24 hours: Intake & Output 09/12/23 09/13/23 09/14/23 09/15/23 23:59 23:59 23:59 23:59 Intake Total 830 / 830 360 / 360 Output Total 0 / 0 0 / 0 Balance 830 / 830 360 / 360 Weight 82 kg 82 kg Constitutional Constitutional: no acute distress *Routine HEENT Exam Head: Present normocephalic Eye: Present EOMI and PERRL ENT: Present mucous membranes moist *Routine Neck Exam Neck: Present supple; Absent lymphadenopathy *Routine Respiratory Exam Respiratory: Present CTA bilaterally *Routine Cardiovascular Exam Cardiovascular: Present irregular rhythm *Routine Abdominal Exam Abdominal: Present soft and normoactive bowel sounds; Absent tenderness *Routine Extremities Exam Extremities: Absent cyanosis, clubbing or edema *Routine Skin Exam Skin: Present warm; Absent rash *Routine Neurological Exam Neurological: Present alert and oriented X3 Results Data Completed and Pending Labs on day of discharge: Labs from last 24 hours 09/15/23 09/14/23 09/14/23 05:35 18:15 12:27 WBC 6.4 D RBC 5.13 Hgb 17.3 D Hct 49.9 MCV 97.4 H MCH 33.7 H MCHC 34.6 RDW 13.9 Plt Count 156 MPV 10.1 Neut % (Auto) 64.8 Lymph % (Auto) 24.2 Stanly % (Auto) 7.3 Eos % (Auto) 2.7 Baso % (Auto) 1.1 Neut # (Auto) 4.1 Lymph # (Auto) 1.5 Stanly # (Auto) 0.5 Eos # (Auto) 0.2 Baso # (Auto) 0.1 APTT 40.8 H 36.2 H VBG Lactic Acid Sodium 140 Potassium 3.8 Chloride 104 Carbon Dioxide 31 H Anion Gap 8.8 BUN 18 Creatinine 1.10 Estimated Creat Clear 84 Estimated GFR 69 Est GFR ( Amer) 83 Glucose 108 H D Calcium 9.1 Troponin I 0.01 09/14/23 11:30 WBC RBC Hgb Hct MCV MCH MCHC RDW Plt Count MPV Neut % (Auto) Lymph % (Auto) Stanly % (Auto) Eos % (Auto) Baso % (Auto) Neut # (Auto) Lymph # (Auto) Stanly # (Auto) Eos # (Auto) Baso # (Auto) APTT VBG Lactic Acid 1.6 Sodium Potassium Chloride Carbon Dioxide Anion Gap BUN Creatinine Estimated Creat Clear Estimated GFR Est GFR ( Amer) Glucose Calcium Troponin I DS: Diagnosis Discharge Diagnosis (1) Unintentional weight loss: Status: Acute Code(s): R63.4 - Abnormal weight loss (2) Polycythemia: Status: Acute Code(s): D75.1 - Secondary polycythemia (3) Atrial fibrillation with RVR: Status: Acute Code(s): I48.91 - Unspecified atrial fibrillation Meds Home Medications and Allergies Home Medications Medication Instructions Recorded Confirmed Type metoprolol succinate 25 mg 25 mg PO DAILY 30 days #30 tabs 09/15/23 Rx tablet,extended release 24 hr rivaroxaban 10 mg tablet (Xarelto) 20 mg (2 x 10 mg) PO QPMWITHMEAL 09/15/23 Rx 30 days #60 tabs New Prescriptions to Start Prescriptions: metoprolol succinate Michael Patterson rivaroxaban [Xarelto] Michael Patterson Allergies Allergy/AdvReac Type Severity Reaction Status Date / Time codeine Allergy Vomiting Verified 08/04/20 09:58 Discharge Plan Disposition Patient Disposition: Home, Self-Care Condition: Good Discharge Order Discharge Orders: Discharge Order (Routine); Ordered 09/15/23 Ordered By: Michael Patterson Follow up Plan Follow up with: Conchita Robbins APRN [Nurse Practitioner] - 1 week Prescriptions/Medication Reconciliation: New metoprolol succinate 25 mg Tablet Extended Release 24 Hr 25 mg PO DAILY 30 Days Qty: 30 0RF Xarelto 10 mg Tablet 20 mg PO QPMWITHMEAL 30 Days Qty: 60 0RF Problem Reconciliation Problems Reviewed?: Yes Patient Discharge Instructions ACTIVITY: Ambulate as tolerated DIET: low fat, low cholesterol Providers Primary Care Provider: Carter Mcfarland Admit Provider: Michael Patterson Attending Provider: Michael Patterson
[2023-09-15] MEDS: RIVAROXABAN 10MG TABLET 20 MG PO (14:06)
[2023-09-15 18:29] LABS: POC Glucose,Bedside 91 (70-110)
--- NOTE | 2023-09-16 15:05 | CARE MANAGER ---
Contacted patient related to hospital discharge. He states he hasn't done much today, but is feeling better. He is taking medication as directed and aware of follow up appointments. XAVIER Ortiz
== END 2023-09-15 14:15 | disposition home or self-care (01) | DRG 310 ==
LOC: ER 07:17 → ICU 08:47
PROVIDERS: Admitting Provider Internal Medicine; Emergency Provider Emergency Medicine; PCP Family Medicine; Visit Provider Internal Medicine
DX: I48.91 Unspecified atrial fibrillation (principal); Z87.891 Personal history of nicotine dependence; E11.9 Type 2 diabetes mellitus without complications; Z79.84 Long term (current) use of oral hypoglycemic drugs; I10 Essential (primary) hypertension; F32.A Depression, unspecified; F41.9 Anxiety disorder, unspecified; D75.1 Secondary polycythemia
CPT/HCPCS: 36415; 71045; 74178; 80048; 80053; 82803; 82962; 83605; 83735; 83880; 84100; 84436; 84443; 84484; 85025; 85378; 85610; 85730; 93005; 93270; 93306; 99291; Q9967

== ENCOUNTER 2023-10-07 06:41 | Outpatient (CLI) | payer MEDICARE, SELFPAY ==
--- NOTE | 2023-10-07 06:44 | NM_ITS ---
APPROVED REPORT Exam: Nuclear Stress Test Indication: soa..fatigue..a-fib Patient Location: Outpatient Stress Tech: Soraya Tee RI Tech:Mandy Martin DIGNA RT(R)(N) Ht: 6 ft 1 in Wt: 175 lbs HR: 76 bpm BP: 166/84 mmHg BSA: 2.03 m2 Rhythm: NSR TID: 0.86 BMI: 23.0 History: soa..fatigue..a-fib Procedure: Patient exercised on Tr protocol 7:41 minutes and sec, resting heart rate 76 bpm, resting blood pressure 166/84 mmHg, with exercise maximum heart rate achived was 143 bpm which is 89 % of the maximum predicted heart rate and blood pressure was 261/93 mmHg. Test was stopped due to fatigue. Patient denied any complaint of chest pain. Patient has Average exercise capacity, achieved 10.1 METs of workload on treadmill, the blood pressure response to exercise was Exaggerated. Cardiac Stress and Resting SPECT Images: Cardiac Stress and Resting SPECT images were obtained using technetium 99m Myoview 31.8 mCi stress and 10.57 mCi at rest. Resting and stress imaging in supine and prone positions demonstrate a large sized, moderate, predominantly fixed perfusion defect in the septal, inferior, and inferoseptal LV kirk. There is a small surrounding region of reversibility. Gated imaging demonstrates normal global LV systolic function. There is mild hypokinesis of the basal inferior LV wall and septal LV wall. LVEF is calculated at 58%. Conclusion: Large sized, moderate, predominantly fixed perfusion defect in the septal, inferior, and inferoseptal LV kirk. There is a small surrounding region of reversibility. Gated imaging demonstrates normal global LV systolic function. There is mild hypokinesis of the basal inferior LV wall and septal LV wall. LVEF is calculated at 58%. Of note, the patient developed an exaggerated hypertensive response to exercise (SBP > 250 mmHg at peak stress). BP control is recommended. Electronically signed by : Jelena Loomis MD 10/11/2023 23:11:04
[2023-10-07] MEDS: SODIUM CHLORIDE 0.9% 10ML SYR (RAD ONLY) 10 ML IV ×2 (09:33)
[2023-10-07] MEDS: ISOTOPE MYOVIEW (PER STUDY) 1 DOSE IV (09:33)
--- NOTE | 2023-10-07 10:13 | CA_ITS ---
APPROVED REPORT Exam: Exercise Treadmill Technologist: Soraya Yarbrough, Ht: 6 ft 1 in Wt: 177 lbs BSA: 2.04 m2 HR: 56 bpm BP: 160/74 mmHg Rhythm: NSR Indications: Afib Medical History Medications: XaRELTO,,,,, Metoprolol Succinate ER,,,,, Stress Test Details Test: Tr Reason for pharmacologic stress test: . HR Resting HR: 76 bpm Max Heart Rate (APMHR): 161 bpm Max HR Achieved: 143 bpm Target HR (85% APMHR): 137 bpm % of APMHR: 89 Recovery HR: 82 bpm HR response to stress: Normal HR response to stress BP Resting BP: 166.0/84.0 mmHg Max BP: 261.0/93.0 mmHg Recovery BP: 163.0/96.0 mmHg BP response to stress: Abnormal hypertensive response to stress. ECG Resting ECG: Sinus lianne, ST-T abns inferiorly Stress EC mm horizontal ST depression Arrhythmia: PVCs, 1 ventricular triplet Recovery ECG: Return to baseline within 5 minutes of recovery Recovery Arrhythmia: PVCs Clinical Exercise duration: 07:41 min Highest Stage Achieved: III Exercise capacity: 10.1 METs Overall Exercise Capacity for Age: Average Stress ECG Conclusion Walked 7:41 on Tr Protocol Max HR: 143 % of PM: 89% Max BP: 261/93 METs: 10.1 Test stopped due to: SOA, leg fatigue Symptoms: SOA, leg fatigue. No CP. Arrhythmias/Ectopy: Occ multifocal PVCs. One ventricular triplet. ST-T Changes: [address] depression laterally at peak exercise. Conclusion: EKG changes (+) for ischemia. HTN response to exercise. Myoview images reported separately. Test Summary REST . . . . . . . Sitting REST . . . . . . . Standing REST 03:17 0.0 0.0 76 . 166/ 84 . . Stage 1 01:00 10.0 1.7 79 . . . . Stage 1 02:00 10.0 1.7 85 . . . . Stage 1 03:00 10.0 1.7 90 . 190/ 80 . . Stage 2 01:00 12.0 2.5 104 . . . . Stage 2 02:00 12.0 2.5 110 . . . . Stage 2 03:00 12.0 2.5 119 . 200/ 80 . . Stage 3 . . . . . . . Myoview Injected Stage 3 01:00 14.0 3.4 137 . . . . Stage 3 01:41 14.0 3.4 143 . . . Stop exercise at 07:41 RECOVERY 01:00 0.0 0.0 115 . . . . RECOVERY 02:00 0.0 0.0 97 . . . . RECOVERY 03:00 0.0 0.0 87 . 261/ 93 . . RECOVERY 04:00 0.0 0.0 81 . 192/ 84 . . RECOVERY 05:00 0.0 0.0 90 . 192/ 84 . . RECOVERY 06:00 0.0 0.0 86 . 186/ 83 . . RECOVERY 07:00 0.0 0.0 82 . 186/ 83 . . RECOVERY 07:39 0.0 0.0 81 . 163/ 96 . . Electronically signed by : Jelena Loomis MD 10/11/2023 23:08:06
== END 2023-10-07 23:59 ==
LOC: RAD 06:41
PROVIDERS: PCP Family Medicine; Visit Provider Obstetrics & Gynecology Gynecologic Oncology
DX: R94.31 Abnormal electrocardiogram [ECG] [EKG] (principal); I48.91 Unspecified atrial fibrillation; R53.83 Other fatigue; D75.1 Secondary polycythemia
CPT/HCPCS: 78452; 93017; 93018; A9502

== ENCOUNTER 2023-10-28 08:18 | Day surgery (SDC) | payer MEDICARE, SELFPAY ==
[2023-10-28] VITALS (11 sets, daily range): BP systolic 117–171; BP diastolic 68–87; PULSE 49–71; RESP 15–20; TEMP 36.6–36.7; O2SAT 97–99; BMI 23.5
--- NOTE | 2023-10-28 07:13 | IR_ITS ---
APPROVED REPORT Patient Location: Outpatient PROCEDURES Left heart catheterization Left ventriculogram Selective coronary angiogram Drug-eluting stent deployment to the ostial and proximal circumflex artery Drug-eluting stent deployment extending into the second obtuse marginal artery Drug-eluting stent deployment to the proximal mid and distal right coronary artery Drug-eluting stent deployment to the posterior descending artery Drug-eluting stent deployment to the posterior lateral ventricular branch INDICATION Coronary artery disease, Abnormal Myoview, Angina pectoris, Informed consent was obtained prior to the procedure. COMPLICATIONS NONE Estimated Blood Loss: LESS THAN 10 ML TECHNIQUE One percent lidocaine used to anesthetize the right anterior aspect of the wrist. The right radial artery was accessed via the Seldinger technique. A 6 Angolan sheath was placed in the right radial artery. 2.5 mg of Verapamil, 800 mcg of nitroglycerin, 1mg Lidocaine and 5000 U Heparin were given through the arterial sheath. The papa catheter was also used to perform left heart catheterization, left ventriculogram and selective coronary angiogram. At the end the diagnostic angiogram therapeutic heparin was administered giving a therapeutic ACT and the guide catheter was placed in the left main artery followed by Choice PT extra-support wire placed in the second obtuse marginal artery. Predilatation with a 2.5 mm balloon was made. Following this a 2.5 x 38 mm [place] frontier stent was placed in the mid circumflex artery extending into the second obtuse marginal artery and deployed at 20 veronica. An additional 3 mm x 18 mm [place] frontier stent was placed in the ostial segment of the circumflex artery extending into the midsegment which overlapped with the first stent. This was deployed at 20 veronica. This balloon was advanced and deployed at 20 veronica. An additional fresh 3 mm x 12 mm noncompliant balloon was then advanced into the 2.5 mm stent midportion and deployed at 20 and 24 veronica throughout the mid circumflex artery extending proximally. SUE-3 flow was present before and after the procedure and the circumflex artery first and second obtuse marginal artery. Following this the guide catheter was placed into the right coronary artery and a Choice PT extra-support wire was placed into the posterior descending artery. A 3.5 x 38 mm [place] frontier stent was deployed in the proximal midportion of the right coronary artery at 20 and then 24 veronica. A 3 mm x 18 mm [place] frontier stent was placed into the posterior descending artery after predilatation with a 2.5 mm balloon was made in the distal right coronary extending into the posterior descending artery. The balloon was brought back slightly and deployed at 20 veronica to post dilate the proximal posterior descending artery. Following this a 3.5 x 12 mm [place] frontier stent was placed in between the 3.5 and 3 mm stent and then deployed at 24 veronica to further post dilate. An additional wire was placed into the posterior lateral ventricular branch and a 2.5 mm balloon was used to open the struts going into the posterior lateral branch. A 2.5 x 30 mm [place] frontier stent was then deployed in the ostial proximal segment of this posterior lateral branch and deployed at 16 veronica. The balloon was brought back into the midportion which extended back into the distal right coronary and deployed at 22 veronica to further post dilate. An additional 2.5 x 12 mm [place] frontier stent was then placed into the posterior descending artery distal to the 3 mm x 38 mm stent yet still overlapping it and deployed at 14 veronica. The balloon was brought back and deployed at 22 veronica to mesh the 2 stents and then pulled back and deployed at 28 veronica between the distal right coronary artery and posterior descending artery. Excellent angiographic results were obtained. Following this a 4 mm x 27 mm noncompliant balloon was deployed at 24 veronica in the proximal mid and distal portion of the dominant right coronary artery to further post dilate. Excellent angiographic results were obtained with SUE-3 flow being present down the right coronary artery posterior descending artery and posterolateral ventricular branch before and after the procedure. The apparatus was removed the sheath was removed good hemostasis was achieved using TR banding patient was transferred to the postop holding in stable condition ANGIOGRAPHIC RESULTS The left main artery Normal The left anterior descending artery Has a proximal calcified 40% stenosis followed by mid vessel 60% stenosis followed by an additional calcified concentric 60% stenosis followed by an additional The circumflex artery Is nondominant yet still large with an ostial proximal eccentric 60 to 70% calcified stenosis followed by mid vessel calcified long 70% stenosis The right coronary artery Large and dominant and has proximal calcified eccentric 50% stenosis followed by proximal calcified 50 to 60% eccentric stenosis followed by mid vessel 50 to 60% stenosis followed by distal 70% stenosis with additional 60% stenoses in the very large posterior lateral ventricular branch followed by 40 to 50% proximal stenoses in this vessel. Medium to large posterior descending artery has an ostial proximal 80% concentric stenosis The MILLS ventriculogram reveals Normal 60% The left ventricular end-diastolic pressure 10 mmHg IMPRESSION Coronary disease as described above Successful stenting of the ostial proximal circumflex artery extending the second obtuse marginal artery severe disease reduced to 0% with 2 contiguous drug-eluting stents Successful stenting of the proximal mid and distal dominant right coronary severe calcified stenoses reduced to 0% with 2 contiguous drug-eluting stents Successful stenting of large posterior descending artery severe disease reduced to 0% with 2 drug-eluting stents Successful stenting of a very large posterior lateral ventricular branch severe disease reduced to 0% with 1 drug-eluting stent Persistent moderate calcified and heavily plaque burden and proximal and mid LAD as described above Normal ejection fraction Normal left ventricular end-diastolic pressure PLAN 1. Xarelto Plavix and aspirin for 30 days and then discontinue aspirin and maintain Plavix and Xarelto 2. LDL less than 55 to be achieved with high intensity statin 3. Cardiac rehabilitation 4. Avoidance of tobacco products 5. Aggressive risk factor modification 6. Medical management for the LAD lesion at this time Electronically signed by : Theo Manuel MD 10/28/2023 13:55:23
[2023-10-28 08:49] LABS: Basophils # 0.1 K/mm3 (0-0.2); Basophils % 1.7 % (0.1-2.0); Eosinophils # 0.2 K/mm3 (0.0-0.4); Eosinophils % 3.1 % (0.1-12.0); Hematocrit 49.5 % (42.0-52.0); Hemoglobin 16.8 g/dL (14.1-18.0); Lymphocytes # 1.3 K/mm3 (0.7-4.5); Lymphocytes % 18.7 % (10-50); Mean Corpuscular Hemoglobin 33.1 pg (27.0-31.2); Mean Corpuscular Volume 97.4 fl (80-94); Mean Platelet Volume 10.3 fl (7.4-10.4); Monocytes # 0.5 K/mm3 (0.1-1.0); Monocytes % 7.6 % (1.7-9.3); Neutrophils # 4.9 K/mm3 (1.8-7.8); Neutrophils % 68.9 % (37.0-80.0); Platelet Count 146 K/mm3 (142-424); Red Blood Count 5.08 M/mm3 (4.60-6.20); Red Cell Distribution Width 14.6 % (11.5-17.5); White Blood Count 7.1 K/mm3 (4.8-10.8)
[2023-10-28 09:06] LABS: Chloride 106 mmol/L (98-107); Potassium 3.9 mmoL/L (3.5-5.1); Sodium 142 mmol/L (136-145)
[2023-10-28 09:09] LABS: Anion Gap 8.9 mEq/L (5-15); Blood Urea Nitrogen 18 mg/dl (9-20); Carbon Dioxide 31 mmol/L (22.0-30.0); Creatinine Clearance Estimated 91 mL/min (50-200); Estimated Glomerular Filt Rate 76 ml/min (>60); GFR (African American) 93 ML/MIN (>60)
[2023-10-28 09:10] LABS: Calcium 9.6 mg/dl (8.4-10.2); Glucose 110 mg/dl (74-100)
[2023-10-28] MEDS: diphenhydrAMINE 50MG/ML VIAL 50 MG IV (11:23)
[2023-10-28] MEDS: HEPARIN 1,000 UNITS/ML 10ML VIAL (CATH LAB) 10000 UNIT IV (11:23)
[2023-10-28] MEDS: LIDOCAINE 1% 10ML MDV 20 ML IJ (11:23)
[2023-10-28] MEDS: 0.9 % SODIUM CHLORIDE 500 ML 25 ML IV (11:23)
[2023-10-28] MEDS: NITROGLYCERIN 800MCG/8ML SYR (CATH LAB) 800 MCG IA (11:23)
[2023-10-28] MEDS: HEPARIN 1,000 UNITS/500ML NS (CATH LAB) 3000 UNIT IV (11:23)
[2023-10-28] MEDS: MIDAZOLAM HCL 1MG/1ML 5ML VIAL 1 MG IV (11:58)
[2023-10-28] MEDS: FENTANYL 100MCG/2ML VIAL 50 MCG IV (11:58)
[2023-10-28] MEDS: CLOPIDOGREL 300MG TABLET 600 MG PO (12:42)
[2023-10-28 14:54] LABS: CATHL Activated Clotting Time 314 SEC (74-125)
[2023-10-28 14:55] LABS: CATHL Activated Clotting Time > 400 SEC (74-125)
[2023-10-28] MEDS: IOPAMIDOL-370 (76%);100ML BOTTLE 205 ML IV (15:08)
== END 2023-10-28 15:20 | disposition home or self-care (01) ==
PROVIDERS: PCP Family Medicine; Visit Provider Internal Medicine
DX: I25.118 Atherosclerotic heart disease of native coronary artery with other forms of angina pectoris (principal); I25.83 Coronary atherosclerosis due to lipid rich plaque; E11.9 Type 2 diabetes mellitus without complications; R94.31 Abnormal electrocardiogram [ECG] [EKG]; I69.398 Other sequelae of cerebral infarction
CPT/HCPCS: 80048; 85025; 85347; 92928; 92929; 93458; 99152; 99153; C1725; C1769; C1874; C1876; C9600; C9601; J1644; Q9967

== ENCOUNTER 2023-11-01 08:34 | Outpatient (CLI) | payer MEDICARE, SELFPAY ==
[2023-11-01 08:53] LABS: Basophils # 0.1 K/mm3 (0-0.2); Eosinophils # 0.3 K/mm3 (0.0-0.4); Eosinophils % 4.2 % (0.1-12.0); Hematocrit 45.8 % (42.0-52.0); Hemoglobin 15.5 g/dL (14.1-18.0); Lymphocytes # 1.7 K/mm3 (0.7-4.5); Lymphocytes % 22.7 % (10-50); Mean Corpuscular HGB Conc 33.7 g/dL (31.8-35.4); Mean Corpuscular Hemoglobin 32.7 pg (27.0-31.2); Mean Corpuscular Volume 96.8 fl (80-94); Mean Platelet Volume 11.1 fl (7.4-10.4); Monocytes # 0.6 K/mm3 (0.1-1.0); Monocytes % 7.5 % (1.7-9.3); Neutrophils # 4.8 K/mm3 (1.8-7.8); Neutrophils % 64.5 % (37.0-80.0); Platelet Count 149 K/mm3 (142-424); Red Blood Count 4.73 M/mm3 (4.60-6.20); Red Cell Distribution Width 14.3 % (11.5-17.5); White Blood Count 7.4 K/mm3 (4.8-10.8)
[2023-11-01 10:16] LABS: Anion Gap 7.3 mEq/L (5-15); Blood Urea Nitrogen 14 mg/dl (9-20); Calcium 9.7 mg/dl (8.4-10.2); Carbon Dioxide 33 mmol/L (22.0-30.0); Chloride 104 mmol/L (98-107); Estimated Glomerular Filt Rate 86 ml/min (>60); GFR (African American) 105 ML/MIN (>60); Glucose 82 mg/dl (74-100); Potassium 4.3 mmoL/L (3.5-5.1); Sodium 140 mmol/L (136-145)
== END 2023-11-01 23:59 | disposition home or self-care (01) ==
LOC: LAB 08:36
PROVIDERS: PCP Family Medicine; Visit Provider Internal Medicine
DX: I25.10 Atherosclerotic heart disease of native coronary artery without angina pectoris (principal); Z95.5 Presence of coronary angioplasty implant and graft
CPT/HCPCS: 36415; 80048; 85025

== ENCOUNTER 2024-06-19 09:01 | Outpatient (CLI) | payer MEDICARE, SELFPAY ==
--- NOTE | 2024-06-19 09:07 | XR_ITS ---
FINAL REPORT CLINICAL HISTORY: Coronary artery disease, smoker COMPARISON: 09/14/2023 FINDINGS: 2 views of the chest were obtained . The heart is normal in size. The mediastinum is within normal limits. There is evidence of old calcified granulomatous disease. The lungs are otherwise clear. There is no pneumothorax. Osseous structures are unremarkable. IMPRESSION: No acute cardiopulmonary process. Reviewed, Interpreted and Dictated by Arlyn Smith MD Transcribed by Cally Linda Authenticated and [facility]
--- NOTE | 2024-06-19 09:07 | XR_ITS ---
FINAL REPORT CLINICAL HISTORY: DIARRHEA FINDINGS: SINGLE VIEW ABDOMEN A single view of the abdomen was obtained. There is a nonobstructive bowel gas pattern. There are no abnormally dilated loops of small bowel. No abnormal calcifications are identified. There are pelvic calcifications consistent with phleboliths. IMPRESSION: Nonobstructive bowel gas pattern. Reviewed, Interpreted and Dictated by Arlyn Smith MD Transcribed by Cally Linda Authenticated and [facility]
== END 2024-06-19 23:59 | disposition home or self-care (01) ==
LOC: RAD 09:03
PROVIDERS: PCP Nurse Practitioner; Visit Provider Nurse Practitioner
DX: R19.7 Diarrhea, unspecified (principal); M54.9 Dorsalgia, unspecified; R10.9 Unspecified abdominal pain
CPT/HCPCS: 71046; 74018